=== PATIENT | female | born 1935 | race Caucasian/White ===

== ENCOUNTER 2022-07-04 20:55 | Inpatient (IN) | payer OTHER ==
[2022-07-04 21:22] VITALS: BMI 32.9
[2022-07-04] MEDS ORDERED: ONDANSETRON 4 MG/2 ML VIAL IVPB ONE (21:43)
[2022-07-04] MEDS ORDERED: SODIUM CHLORIDE 1,000 ML IV SCH (21:45)
[2022-07-04] MEDS ORDERED: ONDANSETRON 4 MG/2 ML VIAL ONE (21:58)
[2022-07-04 22:05] LABS: HEMATOCRIT 34.6 % (32.4-45.2); HEMOGLOBIN 11.4 G/dL (10.7-15.3); MCH 29.2 pg (25.7-33.7); MCHC 32.9 g/dl (32.0-36.0); MEAN CELL VOLUME 88.8 fl (80-96); MEAN PLT VOLUME 8.2 fl (7.5-11.1); PLATELET COUNT 167.9 10^3/uL (134-434); RDW 14.4 % (11.6-15.6); WHITE BLOOD COUNT 13.4 10^3/uL (4.0-10.8)
[2022-07-04 22:20] LABS: ALBUMIN 3.7 g/dl (3.4-5.0); BILIRUBIN,TOTAL 1.4 mg/dl (0.2-1); CALCIUM 8.9 mg/dl (8.5-10); CREATININE 1.1 mg/dl (0.55-1.3); TOT PROT 6.7 g/dl (6.4-8.2)
[2022-07-04 23:26] LABS: VENOUS BASE EXCESS 0.8 mmol/L (-2-2); VENOUS O2 SATURATION 79.9 % (70-80); VENOUS PH 7.451 (7.310-7.410)
[2022-07-04 23:49] LABS: LACTIC ACID 2.3 mmol/L (0.4-2.0)
[2022-07-05 00:17] LABS: N-TERMINAL BNP 4008.4 pg/ml (5-450)
[2022-07-05] MEDS ORDERED: ACETAMINOPHEN 1000 MG/100 ML BAG IVPB ONE (01:52)
[2022-07-05] MEDS ORDERED: FAMOTIDINE 20 MG/50 ML IVPB 20 MG/50 ML MG IVPB ONE ×2 (01:55→02:19)
[2022-07-05] MEDS ORDERED: ACETAMINOPHEN INJECTION 100 ML IVPB ONE (02:05)
[2022-07-05 02:21] LABS: MAGNESIUM 1.7 mg/dL (1.8-2.4)
[2022-07-05 02:25] LABS: PHOSPHOROUS 2.9 mg/dL (2.5-4.9)
[2022-07-05] MEDS ORDERED: ONDANSETRON 4 MG/2 ML VIAL IVPUSH PRN (03:36)
[2022-07-05] MEDS: SODIUM CHLORIDE 1,000 ML IV SCH (08:01)
[2022-07-05 08:46] LABS: CALCIUM 8.3 mg/dl (8.5-10); CREATININE 1.1 mg/dl (0.55-1.3)
[2022-07-05] MEDS: metFORMIN HCL 500 MG TABLET (FP) PO SCH ×2 (09:12→21:43)
[2022-07-05] MEDS: amLODIPine BESYLATE 5 MG TABLET (FP) PO SCH (09:12)
[2022-07-05 11:53] LABS: HEMATOCRIT 30.3 % (32.4-45.2); HEMOGLOBIN 10.2 GM/dL (10.7-15.3); MCH 29.8 pg (25.7-33.7); MCHC 33.8 g/dl (32.0-36.0); MEAN CELL VOLUME 88.1 fl (80-96); MEAN PLT VOLUME 9.1 fl (7.5-11.1); PLATELET COUNT 158 10^3/uL (134-434); RBC 3.44 M/mm3 (3.60-5.2); RDW 14.3 % (11.6-15.6); WHITE BLOOD COUNT 12.5 K/mm3 (4.0-10.0)
[2022-07-05 12:18] LABS: INR 1.21 (0.83-1.09)
[2022-07-05 12:20] LABS: ACTIVATED PTT 30.7 SECONDS (25.2-36.5)
[2022-07-05] MEDS ORDERED: FENTANYL CITRATE/PF 50 MCG/ML VIAL ONE ×2 (14:19→14:51)
[2022-07-05] MEDS ORDERED: MIDAZOLAM HCL 2 MG/2 ML SINGLE DOSE VIAL ONE (14:19)
[2022-07-05] MEDS: GABAPENTIN 300 MG CAPSULE PO SCH ×2 (14:47→21:43)
[2022-07-05] MEDS ORDERED: FENTANYL CITRATE/PF 50 MCG/ML VIAL IVPUSH ONE (15:15)
[2022-07-05] MEDS: ROSUVASTATIN CA 10 MG TABLET PO SCH (21:43)
[2022-07-05] MEDS: PANTOPRAZOLE SODIUM 40 MG VIAL IVPUSH SCH (21:43)
[2022-07-05] MEDS: SENNOSIDES 8.6MG TABLET (FP) PO SCH (21:44)
[2022-07-06] MEDS: SODIUM CHLORIDE 1,000 ML IV SCH (00:28)
[2022-07-06] MEDS ORDERED: ACETAMINOPHEN 325 MG TABLET (FP) PO PRN (03:24)
[2022-07-06] MEDS: GABAPENTIN 300 MG CAPSULE PO SCH ×3 (05:58→22:11)
[2022-07-06] MEDS: PANTOPRAZOLE SODIUM 40 MG VIAL IVPUSH SCH ×2 (09:08→22:35)
[2022-07-06] MEDS: amLODIPine BESYLATE 5 MG TABLET (FP) PO SCH (09:12)
[2022-07-06 10:07] LABS: CARCINOEMBRYONIC ANTIGEN 1.3 ng/mL (0.0-4.7)
[2022-07-06 10:15] LABS: BASO % 0.1 % (0-2.0); HEMATOCRIT 29.9 % (32.4-45.2); LYMPH % 10.7 % (8-40); MCH 29.4 pg (25.7-33.7); MCHC 33.4 g/dl (32.0-36.0); MEAN CELL VOLUME 88.1 fl (80-96); MEAN PLT VOLUME 8.4 fl (7.5-11.1); MONO % 7.8 % (3.8-10.2); NEUT % 81.4 % (42.8-82.8); PLATELET COUNT 170 10^3/uL (134-434); RDW 14.5 % (11.6-15.6); WHITE BLOOD COUNT 13.4 K/mm3 (4.0-10.0)
[2022-07-06 10:17] LABS: INR 1.26 (0.83-1.09); PROTHROMBIN TIME (PATIENT) 14.6 SEC (9.7-13.0)
[2022-07-06 10:19] LABS: ACTIVATED PTT 29.8 SECONDS (25.2-36.5)
[2022-07-06 10:37] LABS: CALCIUM 8.3 mg/dL (8.5-10.1)
[2022-07-06 10:39] LABS: BLOOD UREA NITROGEN 24.8 mg/dL (7-18); MAGNESIUM 1.6 mg/dL (1.8-2.4)
[2022-07-06 10:41] LABS: PHOSPHOROUS 3.3 mg/dL (2.5-4.9); TOT PROT 6.2 g/dl (6.4-8.2)
[2022-07-06 10:43] LABS: CREATININE 1.3 mg/dL (0.55-1.3)
[2022-07-06] MEDS ORDERED: MAGNESIUM 1GM/D5W 100ML - 100 ML IVPB IVPB ONE (10:59)
[2022-07-06] MEDS: INSULIN SLIDING SCALE (NOVOLOG) 1 VIAL SQ SCH ×3 (11:28→22:46)
[2022-07-06] MEDS: ENOXAPARIN NA (PORCINE) 40 MG/0.4 ML DISP.SYRIN SQ SCH (11:31)
[2022-07-06] MEDS: MECLIZINE HCL 12.5 MG TABLET PO PRN (11:48)
[2022-07-06] MEDS: IPRATROPIUM BR 0.02% 0.5 MG/2.5 ML VIAL.NEB. NEB SCH ×3 (15:39→20:07)
[2022-07-06] MEDS ORDERED: ALBUTEROL SO4 HFA INHALER IH ONE (22:06)
[2022-07-06] MEDS ORDERED: ALBUTEROL SO4 0.042% IH SOL 1.25 MG/3 ML VIAL.NEB NEB PRN (22:06)
[2022-07-06] MEDS ORDERED: BUDESONIDE/FORMETEROL FUMARATE 80/4.5 mcg INHALER IH ONE (22:06)
[2022-07-06] MEDS ORDERED: FUROSEMIDE 40 MG/4 ML INJECTABLE VIAL IVPUSH ONE (22:09)
[2022-07-06] MEDS: ROSUVASTATIN CA 10 MG TABLET PO SCH (22:11)
[2022-07-06] MEDS: SENNOSIDES 8.6MG TABLET (FP) PO SCH (22:11)
[2022-07-06] MEDS ORDERED: ALBUTEROL SO4 0.042% IH SOL 1.25 MG/3 ML VIAL.NEB NEB ONE (22:24)
[2022-07-07] MEDS: GABAPENTIN 300 MG CAPSULE PO SCH ×3 (06:47→22:40)
[2022-07-07] MEDS: INSULIN SLIDING SCALE (NOVOLOG) 1 VIAL SQ SCH ×4 (06:50→22:49)
[2022-07-07] MEDS: IPRATROPIUM BR 0.02% 0.5 MG/2.5 ML VIAL.NEB. NEB SCH ×2 (07:22→11:05)
[2022-07-07 09:33] LABS: CALCIUM 7.9 mg/dL (8.5-10.1)
[2022-07-07 09:35] LABS: ALBUMIN 2.7 g/dl (3.4-5.0); BLOOD UREA NITROGEN 24.8 mg/dL (7-18)
[2022-07-07 09:37] LABS: CREATININE 1.1 mg/dL (0.55-1.3); PHOSPHOROUS 3.1 mg/dL (2.5-4.9)
[2022-07-07 09:39] LABS: BILIRUBIN,TOTAL 0.7 mg/dL (0.2-1); TOT PROT 5.6 g/dl (6.4-8.2)
[2022-07-07 09:44] LABS: BASO % 0.1 % (0-2.0); EOS % 0.1 % (0-4.5); HEMATOCRIT 27.3 % (32.4-45.2); HEMOGLOBIN 9.2 GM/dL (10.7-15.3); LYMPH % 8.9 % (8-40); MCH 29.5 pg (25.7-33.7); MCHC 33.7 g/dl (32.0-36.0); MEAN CELL VOLUME 87.5 fl (80-96); MEAN PLT VOLUME 8.4 fl (7.5-11.1); MONO % 7.8 % (3.8-10.2); NEUT % 83.1 % (42.8-82.8); PLATELET COUNT 156 10^3/uL (134-434); RBC 3.12 M/mm3 (3.60-5.2); RDW 14.2 % (11.6-15.6); WHITE BLOOD COUNT 9.9 K/mm3 (4.0-10.0)
[2022-07-07] MEDS ORDERED: VANCOMYCIN 1 GM in D5W (PRE-DOCKED) 1,000 MG/250 ML IVPB SCH (10:00)
[2022-07-07] MEDS ORDERED: PIPERACILLIN/TAZOB 3.375 GM 3.375 GM in DEXTROSE 5%-WATER - 50 ML IVPB SCH (10:00)
[2022-07-07] MEDS ORDERED: VANCOMYCIN/WATER FOR INJ (PEG) 1,000 MG/200 ML BAG IVPB SCH ×2 (10:00)
[2022-07-07] MEDS: ENOXAPARIN NA (PORCINE) 40 MG/0.4 ML DISP.SYRIN SQ SCH (10:43)
[2022-07-07] MEDS: amLODIPine BESYLATE 5 MG TABLET (FP) PO SCH (10:43)
[2022-07-07] MEDS: PANTOPRAZOLE SODIUM 40 MG VIAL IVPUSH SCH ×2 (10:44→22:40)
[2022-07-07] MEDS: CEFTRIAXONE 1 GM in DEXTROSE 5%-WATER - 50 ML IVPB SCH (12:49)
[2022-07-07] MEDS: ALBUTEROL SO4 2.5/IPRATROPIUM 0.5 INH SOL 3 ML VIAL.NEB. NEB SCH ×2 (15:15→20:44)
[2022-07-07] MEDS: FUROSEMIDE 40 MG/4 ML INJECTABLE VIAL IVPUSH SCH (17:29)
[2022-07-07] MEDS: SENNOSIDES 8.6MG TABLET (FP) PO SCH (22:40)
[2022-07-07] MEDS: ROSUVASTATIN CA 10 MG TABLET PO SCH (22:40)
[2022-07-08] MEDS: FUROSEMIDE 40 MG/4 ML INJECTABLE VIAL IVPUSH SCH (05:51)
[2022-07-08] MEDS: GABAPENTIN 300 MG CAPSULE PO SCH ×3 (05:51→21:30)
[2022-07-08] MEDS: INSULIN SLIDING SCALE (NOVOLOG) 1 VIAL SQ SCH ×4 (06:42→21:39)
[2022-07-08] MEDS: ALBUTEROL SO4 2.5/IPRATROPIUM 0.5 INH SOL 3 ML VIAL.NEB. NEB SCH ×4 (08:36→20:31)
[2022-07-08 08:56] LABS: CALCIUM 8.2 mg/dL (8.5-10.1)
[2022-07-08 08:57] LABS: BASO % 0.3 % (0-2.0); EOS % 1.2 % (0-4.5); HEMATOCRIT 29.5 % (32.4-45.2); HEMOGLOBIN 10.1 GM/dL (10.7-15.3); LYMPH % 16.9 % (8-40); MAGNESIUM 1.7 mg/dL (1.8-2.4); MCH 29.8 pg (25.7-33.7); MCHC 34.1 g/dl (32.0-36.0); MEAN CELL VOLUME 87.2 fl (80-96); MEAN PLT VOLUME 8.2 fl (7.5-11.1); MONO % 8.1 % (3.8-10.2); NEUT % 73.5 % (42.8-82.8); PLATELET COUNT 190 10^3/uL (134-434); RBC 3.38 M/mm3 (3.60-5.2); RDW 14.2 % (11.6-15.6); WHITE BLOOD COUNT 7.9 K/mm3 (4.0-10.0)
[2022-07-08 08:58] LABS: ALBUMIN 2.7 g/dl (3.4-5.0)
[2022-07-08 09:00] LABS: CREATININE 1.2 mg/dL (0.55-1.3); PHOSPHOROUS 2.6 mg/dL (2.5-4.9)
[2022-07-08 09:02] LABS: BILIRUBIN,TOTAL 0.8 mg/dL (0.2-1)
[2022-07-08] MEDS ORDERED: POTASSIUM CHLORIDE TABS 20 MEQ TABLET.ER (FP) PO ONE (09:47)
[2022-07-08] MEDS ORDERED: MAGNESIUM 2GM/50ML STERILE WATER IVPB IVPB ONE ×2 (09:47→16:35)
[2022-07-08] MEDS ORDERED: AZITHROMYCIN IVPB 500 MG/250 ML BAG IVPB SCH (10:00)
[2022-07-08] MEDS ORDERED: POTASSIUM CHLORIDE TABS 10 MEQ TABLET.ER (FP) PO SCH (10:00)
[2022-07-08] MEDS: CEFTRIAXONE 1 GM in DEXTROSE 5%-WATER - 50 ML IVPB SCH (10:25)
[2022-07-08] MEDS: ENOXAPARIN NA (PORCINE) 40 MG/0.4 ML DISP.SYRIN SQ SCH (10:38)
[2022-07-08] MEDS: amLODIPine BESYLATE 5 MG TABLET (FP) PO SCH (10:39)
[2022-07-08] MEDS: MECLIZINE HCL 12.5 MG TABLET PO PRN (10:39)
[2022-07-08] MEDS: PANTOPRAZOLE SODIUM 40 MG VIAL IVPUSH SCH ×2 (12:26→21:28)
[2022-07-08] MEDS ORDERED: METOPROLOL TARTRATE 5 MG/5 ML VIAL IVPUSH ONE (15:59)
[2022-07-08] MEDS ORDERED: ENOXAPARIN NA (PORCINE) 80 MG/0.8 ML DISP.SYRIN SQ SCH (16:00)
[2022-07-08] MEDS ORDERED: dilTIAZem HCL 60 MG TABLET PO SCH ×2 (16:00→16:30)
[2022-07-08] MEDS ORDERED: dilTIAZem HCL 25 MG/5 ML - 5 ML VIAL IVPUSH ONE (16:10)
[2022-07-08] MEDS ORDERED: dilTIAZem HCL 50 MG/10 ML - 10 ML VIAL IVPUSH ONE ×2 (16:20→16:30)
[2022-07-08] MEDS ORDERED: INSULIN SLIDING SCALE (NOVOLOG) 1 VIAL SQ ONE (17:02)
[2022-07-08] MEDS: dilTIAZem HCL 30 MG TABLET PO SCH ×2 (17:17→21:31)
[2022-07-08] MEDS: ROSUVASTATIN CA 10 MG TABLET PO SCH (21:31)
[2022-07-08] MEDS: SENNOSIDES 8.6MG TABLET (FP) PO SCH (21:31)
[2022-07-08] MEDS ORDERED: DEXAMETHASONE 0.5 MG TABLET PO ONE (22:00)
[2022-07-09] MEDS: MECLIZINE HCL 12.5 MG TABLET PO PRN (02:20)
[2022-07-09] MEDS ORDERED: MECLIZINE HCL 12.5 MG TABLET PO PRN (04:42)
[2022-07-09] MEDS ORDERED: ONDANSETRON 4 MG/2 ML VIAL IVPUSH PRN (04:42)
[2022-07-09] MEDS ORDERED: ACETAMINOPHEN 325 MG TABLET (FP) PO PRN (04:42)
[2022-07-09] MEDS: GABAPENTIN 300 MG CAPSULE PO SCH ×3 (05:54→21:38)
[2022-07-09] MEDS: ENOXAPARIN NA (PORCINE) 80 MG/0.8 ML DISP.SYRIN SQ SCH ×2 (05:54→17:17)
[2022-07-09] MEDS: INSULIN SLIDING SCALE (NOVOLOG) 1 VIAL SQ SCH ×4 (06:02→21:39)
[2022-07-09] MEDS: ALBUTEROL SO4 2.5/IPRATROPIUM 0.5 INH SOL 3 ML VIAL.NEB. NEB SCH ×4 (07:51→21:28)
[2022-07-09] MEDS ORDERED: PANTOPRAZOLE SODIUM 40 MG VIAL IVPUSH SCH (10:00)
[2022-07-09] MEDS: dilTIAZem HCL 30 MG TABLET PO SCH ×4 (10:20→21:39)
[2022-07-09] MEDS: amLODIPine BESYLATE 5 MG TABLET (FP) PO SCH (10:20)
[2022-07-09] MEDS: FUROSEMIDE 40 MG TABLET (FP) PO SCH (10:20)
[2022-07-09] MEDS: POTASSIUM CHLORIDE TABS 20 MEQ TABLET.ER (FP) PO SCH (10:22)
[2022-07-09] MEDS: CEFTRIAXONE 1 GM in DEXTROSE 5%-WATER - 50 ML IVPB SCH (10:22)
[2022-07-09] MEDS: AZITHROMYCIN IVPB 500 MG/250 ML BAG IVPB SCH (10:25)
[2022-07-09] MEDS: METOPROLOL TARTRATE 50 MG TABLET (FP) PO SCH ×2 (11:40→21:38)
[2022-07-09] MEDS: PANTOPRAZOLE 40 MG TABLET PO SCH (21:39)
[2022-07-09] MEDS: ROSUVASTATIN CA 10 MG TABLET PO SCH (21:39)
[2022-07-09] MEDS: SENNOSIDES 8.6MG TABLET (FP) PO SCH (21:40)
[2022-07-10] MEDS: GABAPENTIN 300 MG CAPSULE PO SCH ×3 (06:23→21:56)
[2022-07-10] MEDS: INSULIN SLIDING SCALE (NOVOLOG) 1 VIAL SQ SCH ×4 (06:23→21:58)
[2022-07-10] MEDS: ENOXAPARIN NA (PORCINE) 80 MG/0.8 ML DISP.SYRIN SQ SCH (06:23)
[2022-07-10] MEDS: ALBUTEROL SO4 2.5/IPRATROPIUM 0.5 INH SOL 3 ML VIAL.NEB. NEB SCH ×4 (08:11→19:24)
[2022-07-10] MEDS: amLODIPine BESYLATE 5 MG TABLET (FP) PO SCH (09:06)
[2022-07-10] MEDS: PANTOPRAZOLE 40 MG TABLET PO SCH ×2 (09:06→21:56)
[2022-07-10] MEDS: FUROSEMIDE 40 MG TABLET (FP) PO SCH (09:06)
[2022-07-10] MEDS: CEFTRIAXONE 1 GM in DEXTROSE 5%-WATER - 50 ML IVPB SCH (09:06)
[2022-07-10] MEDS: POTASSIUM CHLORIDE TABS 20 MEQ TABLET.ER (FP) PO SCH (09:06)
[2022-07-10] MEDS: METOPROLOL TARTRATE 50 MG TABLET (FP) PO SCH (09:06)
[2022-07-10] MEDS: APIXABAN 5 MG TABLET PO SCH ×2 (09:06→21:56)
[2022-07-10 09:59] LABS: ALBUMIN 2.6 g/dl (3.4-5.0); BLOOD UREA NITROGEN 14.2 mg/dL (7-18); CALCIUM 8.4 mg/dL (8.5-10.1)
[2022-07-10 10:02] LABS: CREATININE 0.9 mg/dL (0.55-1.3)
[2022-07-10 10:03] LABS: BILIRUBIN,TOTAL 0.5 mg/dL (0.2-1)
[2022-07-10] MEDS: AZITHROMYCIN IVPB 500 MG/250 ML BAG IVPB SCH (10:11)
[2022-07-10] MEDS ORDERED: POTASSIUM CHLORIDE TABS 20 MEQ TABLET.ER (FP) PO SCH (11:01)
[2022-07-10] MEDS ORDERED: POTASSIUM CHLORIDE ORAL LIQUID 20 MEQ/15 ML PO ONE (11:01)
[2022-07-10] MEDS ORDERED: METOPROLOL TARTRATE 50 MG TABLET (FP) PO SCH (11:26)
[2022-07-10] MEDS ORDERED: METOPROLOL TARTRATE 50 MG TABLET (FP) PO ONE (11:26)
[2022-07-10] MEDS ORDERED: METOPROLOL TARTRATE 25 MG TABLET (FP) PO ONE (18:00)
[2022-07-10] MEDS: ROSUVASTATIN CA 10 MG TABLET PO SCH (21:56)
[2022-07-10] MEDS: SENNOSIDES 8.6MG TABLET (FP) PO SCH (21:58)
[2022-07-10] MEDS ORDERED: POLYETHYLENE GLYCOL (HEALTHYLAX) 3350 17 GM PACKET PO SCH (22:00)
[2022-07-11] MEDS ORDERED: SODIUM CHLORIDE 1,000 ML IV SCH (01:15)
[2022-07-11 02:49] LABS: ARTERIAL BLD GAS O2 SATURATION 98.2 % (95-98); ARTERIAL BLOOD GAS BASE EXCESS 1.7 mmol/L (-2-2); ARTERIAL BLOOD GAS PO2 105.1 mmHg (80-100); ARTERIAL BLOOD GAS pH 7.486 (7.350-7.450)
[2022-07-11 02:50] LABS: ALLENS TEST POSITIVE
[2022-07-11 03:31] LABS: BASO % 0.4 % (0-2.0); EOS % 0.6 % (0-4.5); HEMOGLOBIN 11.6 GM/dL (10.7-15.3); LYMPH % 9.8 % (8-40); MCH 29.1 pg (25.7-33.7); MCHC 33.2 g/dl (32.0-36.0); MEAN CELL VOLUME 87.5 fl (80-96); MEAN PLT VOLUME 7.7 fl (7.5-11.1); MONO % 6.7 % (3.8-10.2); NEUT % 82.5 % (42.8-82.8); PLATELET COUNT 251 10^3/uL (134-434); RDW 14.8 % (11.6-15.6); WHITE BLOOD COUNT 9.1 K/mm3 (4.0-10.0)
[2022-07-11 03:39] LABS: INR 1.21 (0.83-1.09)
[2022-07-11 03:41] LABS: ACTIVATED PTT 30.9 SECONDS (25.2-36.5)
[2022-07-11 03:50] LABS: CALCIUM 8.8 mg/dL (8.5-10.1)
[2022-07-11 03:51] LABS: BLOOD UREA NITROGEN 19.2 mg/dL (7-18)
[2022-07-11 03:52] LABS: MAGNESIUM 1.7 mg/dL (1.8-2.4)
[2022-07-11 03:54] LABS: CREATININE 1.1 mg/dL (0.55-1.3); PHOSPHOROUS 3.3 mg/dL (2.5-4.9)
[2022-07-11 03:56] LABS: BILIRUBIN,TOTAL 0.4 mg/dL (0.2-1); TOT PROT 6.6 g/dl (6.4-8.2)
[2022-07-11 04:42] VITALS: BP 155/86; PULSE 125
[2022-07-11 04:54] VITALS: RESP 20; TEMP 97.7
== END 2022-07-11 08:31 | disposition short-term general hospital (02) | DRG 643 ==
LOC: FER 20:55 → FM/S 07-05 02:06 → J6S 07-05 12:36 → J4S 07-08 16:01
PROVIDERS: ADMIT Internal Medicine; ATTEND Family Medicine
DX: E27.8 Other specified disorders of adrenal gland (principal); I63.89 Other cerebral infarction; J81.1 Chronic pulmonary edema; N28.0 Ischemia and infarction of kidney; G81.94 Hemiplegia, unspecified affecting left nondominant side; D49.7 Neoplasm of unspecified behavior of endocrine glands and other parts of nervous system; R42 Dizziness and giddiness; I48.91 Unspecified atrial fibrillation; R11.2 Nausea with vomiting, unspecified; E78.5 Hyperlipidemia, unspecified; R10.10 Upper abdominal pain, unspecified; E87.6 Hypokalemia; E11.9 Type 2 diabetes mellitus without complications; K59.00 Constipation, unspecified; R93.0 Abnormal findings on diagnostic imaging of skull and head, not elsewhere classified; H83.2X9 Labyrinthine dysfunction, unspecified ear; D64.9 Anemia, unspecified; R29.810 Facial weakness; I65.21 Occlusion and stenosis of right carotid artery; R29.725 NIHSS score 25
CPT/HCPCS: 36415; 36600; 49180; 70450-TC; 70496-TC; 70498-TC; 70553-TC; 71045-TC-FY; 71250-TC; 74019-TC-FY; 74176-TC; 74177-TC; 80048; 80053; 81003; 81015; 82024; 82378; 82533; 82550; 82803; 82962; 83036; 83605; 83690; 83735; 83880; 84100; 84439; 84443; 84484; 85025; 85027; 85610; 85730; 86301; 87040; 93005; 93010; 93306-TC; 94010; 94640; 94761; 97116-GP; 97162-GP; 99285-25; C1887; C9803-CS; Q9967; U0003; U0005